=== PATIENT | female | born 1955 | race Caucasian/White ===

== ENCOUNTER 2016-02-25 11:00 | Emergency (ER) | payer MEDICAID, OTHER ==
[2016-02-25] MEDS ORDERED: DEXAMETHASONE 10 MG/ML VIAL PO STA (13:21)
[2016-02-25] MEDS ORDERED: DEXAMETHASONE 10 MG/ML VIAL ONE (13:25)
[2016-02-25] MEDS ORDERED: CHERRY SYRUP 10 ML UDC PO ONE (13:25)
== END 2016-02-25 13:39 | disposition home or self-care (01) ==
DX: R05 Cough (principal); H66.002 Acute suppurative otitis media without spontaneous rupture of ear drum, left ear; I10 Essential (primary) hypertension
CPT/HCPCS: 71020; 87275; 87276; 99283; 99284; A9270

== ENCOUNTER 2018-12-13 10:29 | Outpatient (CLI) | payer OTHER ==
--- NOTE | 2018-12-13 16:15 | CT Report ---
Reason: VISUAL FIELD DEFECT, EYE PAIN Procedure Date: 12/13/2018 Accession Number: [id number] / [id number] Procedure: CT - HEAD WO CPT Code: FULL RESULT: EXAM: CT HEAD EXAM DATE: 12/13/2018 10:40 AM. CLINICAL HISTORY: VISUAL FIELD DEFECT, EYE PAIN. COMPARISON: None. TECHNIQUE: Multiaxial CT images were obtained from the foramen magnum to the vertex. Reformats: Sagittal and coronal. IV contrast: None. In accordance with CT protocol optimization, one or more of the following dose reduction techniques were utilized for this exam: automated exposure control, adjustment of mA and/or KV based on patient size, or use of iterative reconstructive technique. FINDINGS: Parenchyma: No intraparenchymal hemorrhage. No evidence of mass, midline shift, or CT findings of infarction. Hoskins-white differentiation is distinct. Extraaxial Spaces: Normal for age. No subdural or epidural collections identified. Ventricles: Normal in size and position. Sinuses and Orbits: Imaged paranasal sinuses, orbits, and mastoids show no significant abnormality. Bones: No evidence of fracture or calvarial defect. Other: None. IMPRESSION: No acute intracranial abnormality. RADIA
== END 2018-12-13 10:30 | disposition home or self-care (01) ==
LOC: DI 10:29
PROVIDERS: ATTEND Registered Nurse
DX: H53.40 Unspecified visual field defects (principal); H57.10 Ocular pain, unspecified eye
CPT/HCPCS: 70450

== ENCOUNTER 2019-08-06 07:24 | Outpatient (CLI) | payer OTHER ==
[2019-08-06 15:39] LABS: BASOPHILS # (AUTO) 0.1 10^3/uL (0.0-0.1); EOSINOPHILS # (AUTO) 0.1 10^3/uL (0.0-0.7); EOSINOPHILS % (AUTO) 3.1 %; HGB - HEMOGLOBIN 12.5 g/dL (12.0-16.0); LYMPHOCYTES # (AUTO) 1.1 10^3/uL (1.5-3.5); LYMPHOCYTES % (AUTO) 37.3 %; MEAN CORPUSCULAR HEMOGLOBIN 28.2 pg (27.0-31.0); MEAN CORPUSCULAR HGB CONC 31.6 g/dL (32.0-36.0); MEAN PLATELET VOLUME 12.2 fL (7.9-10.8); MONOCYTES # (AUTO) 0.3 10^3/uL (0.0-1.0); MONOCYTES % (AUTO) 10.5 %; NEUTROPHILS # (AUTO) 1.4 10^3/uL (1.5-6.6); NEUTROPHILS % (AUTO) 47.1 %; PLT - PLATELET COUNT 140 10^3/uL (130-450); RED BLOOD COUNT 4.44 10^6/uL (4.20-5.40); RED CELL DISTRIBUTION WIDTH 12.6 % (12.0-15.0)
[2019-08-06 15:48] LABS: ALBUMIN 4.1 g/dL (3.2-5.5); ALBUMIN/GLOBULIN RATIO 1.8 (1.0-2.2); ALKALINE PHOSPHATASE 74 IU/L (42-121); ALT ALANINE AMINOTRANSFERASE 14 IU/L (10-60); AST ASPARTATE AMINOTRANSFERASE 20 IU/L (10-42); BILIRUBIN,TOTAL 0.8 mg/dL (0.2-1.0); BUN - BLOOD UREA NITROGEN 13 mg/dL (6-20); CARBON DIOXIDE - CO2 29 mmol/L (21-32); CHLORIDE 105 mmol/L (101-111); CHOL/HDL RATIO 3.8 (<4.4); CHOLESTEROL 184 mg/dL; CREATININE 0.8 mg/dL (0.4-1.0); GLUCOSE 90 mg/dL (70-100); HDL CHOLESTEROL 48 mg/dL; LDL CHOLESTEROL,CALCULATED 109 mg/dL; LDL/HDL RATIO 2.3 (<4.4); SODIUM 142 mmol/L (135-145); TOTAL PROTEIN 6.4 g/dL (6.7-8.2); VLDL CHOLESTEROL 27 mg/dL
[2019-08-06 15:51] LABS: HB2 TOTAL 12.8 g/dL; HEMOGLOBIN A1C 0.48 g/dL; HEMOGLOBIN A1C % 5.6 % (4.6-6.2)
[2019-08-06 16:01] LABS: PLATELET ESTIMATE, MANUAL NORMAL (130-450,000) (NORMAL); PLATELET MORPHOLOGY NORMAL APPEARANCE (NORMAL); RBC MORPHOLOGY (MULTIPLE) NORMAL APPEARANCE (NORMAL)
== END 2019-08-06 07:25 | disposition home or self-care (01) ==
LOC: LAB.S 07:24
PROVIDERS: ATTEND Registered Nurse
DX: H53.40 Unspecified visual field defects (principal); R42 Dizziness and giddiness; R51 Headache
CPT/HCPCS: 36415; 80053; 80061; 83036; 83721; 84443; 85025

== ENCOUNTER 2022-01-05 10:32 | Outpatient (CLI) | payer MEDICARE ==
--- NOTE | 2022-01-05 13:15 | DEXA Report ---
PROCEDURE: Dexa Spine and/or Hip INDICATIONS: POSTMANOPAUSAL TECHNIQUE: Dual energy x-ray absorptiometry (DXA) was performed on a MOMENTFACE SRO System. Regions measur ed are the AP Spine, femoral neck, and if needed forearm. COMPARISON: None. FINDINGS: Lumbar Spine: Bone Mineral Density 0.801 g/cm/cm,T score -3.2, osteoporosis Left total Hip: Bone Mineral Density 0.511 g/cm/cm,T score -3.9, osteoporosis Left Femoral Neck: Bone Mineral Density 0.531 g/cm/cm, T score -3.6, osteoporosis (T score greater or equal to -1.0: NORMAL) (T score from -1.1 to -2.4: OSTEOPENIA) (T score less than or equal to -2.5 to: OSTEOPOROSIS) Impression: Osteoporosis Patients with diagnosis of osteoporosis or osteopenia should have regular bone mineral density assess ment. For those eligible for Medicare, routine testing is allowed once every 2 years. Testing frequ ency can be increased for patients who have rapidly progressing disease or for those who are receivin g medical therapy to restore bone mass. Reviewed by: Raghavendra Fox on 01/05/2022 1:13 PM PST Approved by: Raghavendra Fox on 01/05/2022 1:13 PM PST Station ID: [id number]
== END 2022-01-05 10:33 | disposition home or self-care (01) ==
LOC: DI 10:32
PROVIDERS: ATTEND Registered Nurse
DX: M81.0 Age-related osteoporosis without current pathological fracture (principal); Z78.0 Asymptomatic menopausal state

== ENCOUNTER 2022-08-11 10:37 | Outpatient (CLI) | payer MEDICARE ==
[2022-08-11 14:32] LABS: BASOPHILS % (AUTO) 1.1 %; EOSINOPHILS # (AUTO) 0.1 10^3/uL (0.0-0.7); HCT - HEMATOCRIT 38.6 % (37.0-47.0); HGB - HEMOGLOBIN 11.8 g/dL (12.0-16.0); LYMPHOCYTES # (AUTO) 1.1 10^3/uL (1.5-3.5); LYMPHOCYTES % (AUTO) 31.1 %; MEAN CORPUSCULAR HEMOGLOBIN 27.8 pg (27.0-31.0); MEAN CORPUSCULAR HGB CONC 30.6 g/dL (32.0-36.0); MEAN CORPUSCULAR VOLUME 90.8 fL (81.0-99.0); MEAN PLATELET VOLUME 12.7 fL (7.9-10.8); MONOCYTES # (AUTO) 0.4 10^3/uL (0.0-1.0); MONOCYTES % (AUTO) 11.4 %; NEUTROPHILS # (AUTO) 1.9 10^3/uL (1.5-6.6); NEUTROPHILS % (AUTO) 54.1 %; PLT - PLATELET COUNT 131 10^3/uL (130-450); RED BLOOD COUNT 4.25 10^6/uL (4.20-5.40); RED CELL DISTRIBUTION WIDTH 13.4 % (12.0-15.0); WHITE BLOOD COUNT 3.5 x10^3/uL (4.8-10.8)
[2022-08-11 14:41] LABS: ALBUMIN 4.1 g/dL (3.2-5.5); ALBUMIN/GLOBULIN RATIO 1.6 (1.0-2.2); BILIRUBIN,TOTAL 0.6 mg/dL (0.2-1.0); CALCIUM 9.2 mg/dL (8.5-10.3); CREATININE 0.8 mg/dL (0.4-1.0); POTASSIUM 4.6 mmol/L (3.5-5.0); TOTAL PROTEIN 6.7 g/dL (6.7-8.2)
== END 2022-08-11 10:38 | disposition home or self-care (01) ==
LOC: LAB.S 10:37
PROVIDERS: ATTEND Nurse Practitioner
DX: Z01.812 Encounter for preprocedural laboratory examination (principal); Z79.899 Other long term (current) drug therapy
CPT/HCPCS: 36415; 80053; 85025

== ENCOUNTER 2023-09-28 10:30 | Outpatient (CLI) | payer MEDICARE ==
[2023-09-28 10:38] LABS: BASOPHILS # (AUTO) 0.1 10^3/uL (0.0-0.1); BASOPHILS % (AUTO) 1.7 %; EOSINOPHILS # (AUTO) 0.1 10^3/uL (0.0-0.7); EOSINOPHILS % (AUTO) 2.7 %; HGB - HEMOGLOBIN 13.1 g/dL (12.0-16.0); LYMPHOCYTES # (AUTO) 1.5 10^3/uL (1.5-3.5); LYMPHOCYTES % (AUTO) 37.4 %; MEAN CORPUSCULAR HEMOGLOBIN 27.7 pg (27.0-31.0); MEAN CORPUSCULAR HGB CONC 31.2 g/dL (32.0-36.0); MEAN CORPUSCULAR VOLUME 88.8 fL (81.0-99.0); MEAN PLATELET VOLUME 11.2 fL (7.9-10.8); MONOCYTES # (AUTO) 0.4 10^3/uL (0.0-1.0); MONOCYTES % (AUTO) 9.4 %; NEUTROPHILS % (AUTO) 48.8 %; PLT - PLATELET COUNT 164 10^3/uL (130-450); RED BLOOD COUNT 4.73 10^6/uL (4.20-5.40); RED CELL DISTRIBUTION WIDTH 13.6 % (12.0-15.0); WHITE BLOOD COUNT 4.1 x10^3/uL (4.8-10.8)
[2023-09-28 10:54] LABS: ALBUMIN 4.4 g/dL (3.2-5.5); ALBUMIN/GLOBULIN RATIO 1.8 (1.0-2.2); ALKALINE PHOSPHATASE 152 IU/L (42-121); ALT ALANINE AMINOTRANSFERASE 12 IU/L (10-60); AST ASPARTATE AMINOTRANSFERASE 19 IU/L (10-42); BILIRUBIN,TOTAL 0.5 mg/dL (0.2-1.0); BUN - BLOOD UREA NITROGEN 15 mg/dL (6-20); CALCIUM 9.6 mg/dL (8.5-10.3); CARBON DIOXIDE - CO2 26 mmol/L (21-32); CHLORIDE 110 mmol/L (101-111); CHOL/HDL RATIO 3.6 (<4.4); CHOLESTEROL 167 mg/dL; CREATININE 0.8 mg/dL (0.6-1.3); GFR - MDRD 72 (>89); GLUCOSE 97 mg/dL (74-104); HDL CHOLESTEROL 47 mg/dL; LDL CHOLESTEROL,CALCULATED 96 mg/dL; POTASSIUM 4.5 mmol/L (3.5-4.5); SODIUM 141 mmol/L (135-145); TOTAL PROTEIN 6.8 g/dL (6.4-8.9); TRIGLYCERIDES 118 mg/dL; VLDL CHOLESTEROL 24 mg/dL
[2023-09-28 11:09] LABS: THYROID STIMULATING HORMONE 1.37 uIU/mL (0.34-5.60)
[2023-09-28 11:48] LABS: ESTIMATED AVERAGE GLUCOSE 103 mg/dL (70-100); HEMOGLOBIN A1c% 5.2 % (4.27-6.07)
== END 2023-09-28 10:31 | disposition home or self-care (01) ==
LOC: LAB 10:30
PROVIDERS: ATTEND Internal Medicine
DX: Z13.1 Encounter for screening for diabetes mellitus (principal); Z79.899 Other long term (current) drug therapy; I10 Essential (primary) hypertension; Z13.220 Encounter for screening for lipoid disorders; Z13.29 Encounter for screening for other suspected endocrine disorder
CPT/HCPCS: 36415; 80053; 80061; 83036; 83721; 84443; 85025

== ENCOUNTER 2023-10-19 12:35 | Outpatient (CLI) | payer MEDICARE ==
--- NOTE | 2023-10-19 13:32 | XRAY Report ---
PROCEDURE: Lumbar Spine 4V INDICATIONS: BACK PAIN, HIP JOINT PAIN TECHNIQUE: 3 views of the lumbar spine were acquired. COMPARISON: None. FINDINGS: Surgical change: None. Bones: 5 xor-rug-weaujsi vertebrae are present. There is normal bony alignment. 60% compression defo rmity at L5 or. No priors. There is trace retrolisthesis of L4 on L5. Foraminal narrowing is present at L4-5 and L5-S1. Scattered disc space narrowing most prominent at L2-3, L3-4. Soft tissues: Overlying bowel gas pattern is normal. No suspicious soft tissue calcifications. IMPRESSION: L4 compression deformity of indeterminate age. Reviewed by: Mckenzie Tay MD on 10/19/2023 1:31 PM PDT Approved by: Mckenzie Tay MD on 10/19/2023 1:31 PM PDT Station ID: [id number]
--- NOTE | 2023-10-20 15:02 | XRAY Report ---
PROCEDURE: Hips w/Pelvis 2-3V BL INDICATIONS: BACK PAIN AND HIP JOINT PAIN TECHNIQUE: 3 view(s) of the hip were acquired. COMPARISON: None. FINDINGS: Bones: Diffuse osseous demineralization limits sensitivity for subtle nondisplaced fracture. Within t hese limitations, no acute fracture or dislocation. Severe left and moderate to severe right femoral acetabular joint space narrowing and juxta-articular osteophytosis. No suspicious bony lesions. The visualized pelvic ring appears intact. Degenerative changes of the lower lumbar spine, bilateral SI joints and pubic symphysis. Soft tissues: No suspicious soft tissue calcifications or masses. IMPRESSION: 1.Diffuse osseous mineralization limits sensitivity for subtle nondisplaced fracture. Within these li mitations, no acute fracture or dislocation. If there is high clinical suspicion for a radiographical ly occult fracture, recommend cross-sectional imaging for further evaluation. 2.Severe left and moderate to severe right hip osteoarthritis. Reviewed by: Jono Cast MD on 10/20/2023 2:01 PM [facility] Approved by: Jono Cast MD on 10/20/2023 2:01 PM [facility] Station ID: [id number]
== END 2023-10-19 12:36 | disposition home or self-care (01) ==
LOC: DI.S 12:35
PROVIDERS: ATTEND Internal Medicine
DX: M54.50 Low back pain, unspecified (principal); M25.551 Pain in right hip; M16.0 Bilateral primary osteoarthritis of hip; R93.7 Abnormal findings on diagnostic imaging of other parts of musculoskeletal system

== ENCOUNTER 2023-11-10 07:33 | Outpatient (CLI) | payer MEDICARE ==
[2023-11-10] MEDS ORDERED: LIDOCAINE-MPF 1% 5 ML VIAL ONE (07:55)
[2023-11-10] MEDS ORDERED: iohexoL-240 10 ML VIAL IVP ONE (07:57)
[2023-11-10] MEDS ORDERED: GADOTERATE MEGLUMINE 5 MMOL/10 ML VIAL ONE (07:59)
[2023-11-10] MEDS: LIDOCAINE-MPF 1% 5 ML VIAL TD ONE (08:47)
[2023-11-10] MEDS: iohexoL-240 10 ML VIAL IVP ONE (08:49)
[2023-11-10] MEDS: GADOTERATE MEGLUMINE 5 MMOL/10 ML VIAL IVP ONE (08:50)
--- NOTE | 2023-11-10 09:31 | XRAY Report ---
PROCEDURE: Arthrogram Needle Placement INDICATIONS: HIP DJD TECHNIQUE: The indications, alternatives, benefits, risks, and complications of the procedure were explained to the patient. Written informed consent was obtained and placed in the chart. The right hip joint was examined fluoroscopically and a site for needle placement chosen for entry into the glenohumeral heron nt from an anterior approach. The skin was prepped and draped in the usual fashion, and 1% lidocaine infiltrated from skin down to joint capsule. A spinal needle was inserted into the right hip joint, and a small amount of iodinated contrast media injected to confirm intra-articular placement of the needle tip. This was followed by approximately 12 mL dilute solution of a gadolinium containing MR c ontrast agent. The needle was removed and a dressing was applied. The patient was given postprocedural instructions and sent to the MR suite for MR imaging. FINDINGS: A single fluoroscopic spot image demonstrates intra-articular location of injected iodinated contrast . IMPRESSION: Successful fluoroscopically guided administration of dilute Gadolinium solution into the right hip alfonso int for MR arthrogram. Reviewed by: Martir Mullen MD on 11/10/2023 9:29 AM PDT Approved by: Martir Mullen MD on 11/10/2023 9:29 AM PDT Station ID: [id number]
--- NOTE | 2023-11-10 22:38 | MRI Report ---
PROCEDURE: Arthrogram Hip RT INDICATIONS: HIP DJD CONTRAST: 10 cc of diluted intra-articular gadolinium contrast. TECHNIQUE: After the administration of 10 mL of dilute intra-articular Gadolinium contrast, coronal STIR of the bony pelvis; coronal and oblique axial T1 spin echo with fat saturation, axial T2 fast spin echo with fat saturation, sagittal T1 spin echo with and without fat saturation of the involved hip. COMPARISON: Bilateral hip radiograph dated 11/07 FINDINGS: Image quality: Excellent. Bones and joints: Moderate to severe bilateral hip joint osteoarthritic changes are seen with signifi cant superior joint space narrowing, subchondral sclerosis and marginal osteophyte formation worse on the left side. No acute fracture or dislocation. No gross marrow edema. No avascular necrosis of the femoral head. The visualized lower lumbar spine appears normally aligned. The ligamental, neck, an d labral plicae appear normal where visualized. Tendons and ligaments: Distal right gluteus medius and minimus tendinosis at their insertions on grea ter trochanter is seen. No fluid distending trochanteric bursa. The nearby proximal iliotibial band a lso appears intact. The iliopsoas tendon appears intact, without adjacent bursal fluid collections o r evidence for impingement syndrome. The origin of the hamstring tendon is intact at the ischial tub erosity, as well as the associated sacrotuberous ligament. The straight and reflected heads of the r ectus femoris muscle origin appear intact, as well as the conjoint tendon. The ligamentum teres appe ars intact where visualized. Labrum and cartilage: There is near complete loss of articulating cartilage. Extensive fraying of sup erior anterior glenoid labrum with contrast extension is seen suggestive of extensive superior anteri or right acetabular labral tear. No intra-articular loose bodies. Soft tissues: Visualized muscles demonstrate normal bulk and internal signal. Quadratus femoris mus yoly demonstrates no internal edema to suggest ischiofemoral impingement. The proximal sciatic neurov ascular bundle appears normal adjacent to the hamstring tendons. No free pelvic fluid. Bladder wall thickness is normal. Genitourinary structures and bowel loops appear normal where visualized. IMPRESSION: 1. Moderate to severe left worse on right bilateral hip joint osteoarthritis. No marrow edema. No fra cture or dislocation. No evidence of avascular necrosis of femoral heads. 2. Distal right gluteus medius and minimus tendinosis. No other muscle or tendon signal abnormalities . 3. Suggestion of extensive superior anterior right acetabular labral tear. Reviewed by: Martir Tipton MD on 11/10/2023 10:37 PM PDT Approved by: Martir Tipton MD on 11/10/2023 10:37 PM PDT Station ID: [id number]
== END 2023-11-10 07:34 | disposition home or self-care (01) ==
LOC: DI 07:33
PROVIDERS: ATTEND Internal Medicine
DX: M16.0 Bilateral primary osteoarthritis of hip (principal); M67.951 Unspecified disorder of synovium and tendon, right thigh
CPT/HCPCS: 27093; 73722; 77002; A9575; Q9966